=== PATIENT | female | born 1985 | race African-American/Black ===

== ENCOUNTER 2017-12-18 12:32 | Emergency (ER) | payer SELFPAY ==
[~2017-12-18] VITALS: Ht 165.1 cm; Wt 95.0 kg
[2017-12-18 12:41] VITALS: BP 117/80; PULSE 76; RESP 18; TEMP 98.6; O2SAT 100
[2017-12-18] MEDS ORDERED: SODIUM CHLOR 0.9% 1000 ML INJ 1,000 ML IV SCH (12:56)
[2017-12-18] MEDS ORDERED: MECLIZINE HCL 25 MG TAB PO ONE (13:00)
[2017-12-18] MEDS ORDERED: SODIUM CHLORIDE 0.9% FLUSH 10 ML FLUSH IV FLUSH PRN (13:00)
--- NOTE | 2017-12-18 13:02 | PD ---
HPI Chief Complaint: Abdominal Pain Time Seen by Provider: 12:47 Travel History International Travel<30 days: No Contact w/Intl Traveler<30days: No Traveled to known affect area: No History of Present Illness HPI 32-year-old female presents to the emergency department for evaluation of intermittent dizziness, palpitations, right upper quadrant abdominal pain that started 4-5 days ago. Patient states the dizziness is intermittent, worse if she bends over and stands up. Patient denies any associated nausea. She denies syncope. Patient states that she has been getting intermittent palpitations with some associated burning as well. She also reports right upper quadrant abdominal pain after she eats. She currently rates the abdominal pain 6/10, burning, without radiation. She denies . No urinary symptoms. No abnormal vaginal discharge or risk of STDs. She has no chronic medical problems and takes no prescribed medications. Moderate severity. PFSH Past Medical History ?: Not LMP: 12/12/17 Social History Alcohol Use: No Tobacco Use: No Substance Use: No Allergies-Medications (Allergen,Severity, Reaction): Coded Allergies: No Known Allergies (Unverified , 12/18/17) Reported Meds & Prescriptions Reported Meds & Active Scripts Active No Active Prescriptions or Reported Medications Review of Systems Except as stated in HPI: all other systems reviewed are Neg Physical Exam Narrative GENERAL: Well-nourished, well-developed female patient, ambulatory with a steady gait. Afebrile. SKIN: Focused skin assessment warm/dry. HEAD: Normocephalic. Atraumatic. EYES: No scleral icterus. No injection or drainage. NECK: Supple, trachea midline. No JVD or lymphadenopathy. CARDIOVASCULAR: Regular rate and rhythm without murmurs, gallops, or rubs. Bilateral radial and pedal pulses are 2+. RESPIRATORY: Breath sounds equal bilaterally. No accessory muscle use. Lung sounds are clear to auscultation. GASTROINTESTINAL: Abdomen soft and nondistended. She has tenderness over the right upper quadrant. MUSCULOSKELETAL: No cyanosis, or edema. Bilateral upper and lower extremity strength 5/5. All extremities are neurovascularly intact. BACK: Nontender without obvious deformity. No CVA tenderness. Data Data Last Documented VS Vital Signs Date Time Temp Pulse Resp B/P (MAP) Pulse Ox O2 Delivery O2 Flow Rate FiO2 12/18/17 12:41 98.6 76 18 117/80 (92) 100 Orders Orders Complete Blood Count With Diff (12/18/17 12:56) Comprehensive Metabolic Panel (12/18/17 12:56) Lipase (12/18/17 12:56) Prothrombin Time / Inr (Pt) (12/18/17 12:56) Act Partial Throm Time (Ptt) (12/18/17 12:56) Urinalysis - C+S If Indicated (12/18/17 12:56) Us Abdomen Gallbladder (12/18/17 ) Iv Access Insert/Monitor (12/18/17 12:56) Ecg Monitoring (12/18/17 12:56) Oximetry (12/18/17 12:56) Sodium Chlor 0.9% 1000 Ml Inj (Ns 1000 M (12/18/17 12:56) Sodium Chloride 0.9% Flush (Ns Flush) (12/18/17 13:00) Electrocardiogram (12/18/17 12:56) Ed Urine Pregnancytest Poc (12/18/17 12:56) Creatine Kinase (Cpk) (12/18/17 12:56) Troponin I (12/18/17 12:56) Meclizine (Antivert) (12/18/17 13:00) CKMB (12/18/17 13:05) CKMB% (12/18/17 13:05) Labs Laboratory Tests Test 12/18/17 13:05 White Blood Count 6.7 TH/MM3 Red Blood Count 5.05 MIL/MM3 Hemoglobin 12.5 GM/DL Hematocrit 39.3 % Mean Corpuscular Volume 77.8 FL Mean Corpuscular Hemoglobin 24.8 PG Mean Corpuscular Hemoglobin Concent 31.9 % Red Cell Distribution Width 15.5 % Platelet Count 400 TH/MM3 Mean Platelet Volume 8.2 FL Neutrophils (%) (Auto) 51.5 % Lymphocytes (%) (Auto) 43.4 % Monocytes (%) (Auto) 4.3 % Eosinophils (%) (Auto) 0.2 % Basophils (%) (Auto) 0.6 % Neutrophils # (Auto) 3.4 TH/MM3 Lymphocytes # (Auto) 2.9 TH/MM3 Monocytes # (Auto) 0.3 TH/MM3 Eosinophils # (Auto) 0.0 TH/MM3 Basophils # (Auto) 0.0 TH/MM3 CBC Comment DIFF FINAL Differential Comment Prothrombin Time 10.6 SEC Prothromb Time International Ratio 1.0 RATIO Activated Partial Thromboplast Time 23.6 SEC Urine Color YELLOW Urine Turbidity HAZY Urine pH 5.5 Urine Specific Reading 1.029 Urine Protein TRACE mg/dL Urine Glucose (UA) NEG mg/dL Urine Ketones TRACE mg/dL Urine Occult Blood MOD Urine Nitrite NEG Urine Bilirubin NEG Urine Urobilinogen LESS THAN 2.0 MG/DL Urine Leukocyte Esterase NEG Urine RBC 3 /hpf Urine WBC 1 /hpf Urine Squamous Epithelial Cells 10 /hpf Urine Calcium Oxalate Crystals MANY /hpf Urine Mucus FEW /lpf Microscopic Urinalysis Comment CULT NOT INDICATED Blood Urea Nitrogen 9 MG/DL Creatinine 0.96 MG/DL Random Glucose 83 MG/DL Total Protein 9.1 GM/DL Albumin 4.0 GM/DL Calcium Level 9.2 MG/DL Alkaline Phosphatase 74 U/L Aspartate Amino Transf (AST/SGOT) 25 U/L Alanine Aminotransferase (ALT/SGPT) 25 U/L Total Bilirubin 0.4 MG/DL Sodium Level 138 MEQ/L Potassium Level 3.9 MEQ/L Chloride Level 103 MEQ/L Carbon Dioxide Level 25.3 MEQ/L Anion Gap 10 MEQ/L Estimat Glomerular Filtration Rate 67 ML/MIN Total Creatine Kinase 461 U/L Creatine Kinase MB 1.9 NG/ML Creatine Kinase MB % 0.4 % Troponin I LESS THAN 0.02 NG/ML Lipase 122 U/L [facility] Medical Decision Making Medical Screen Exam Complete: Yes Emergency Medical Condition: Yes Medical Record Reviewed: Yes Interpretation(s) Last Impressions Gall Bladder Ultrasound 12/18/17 0000 Signed Impressions: Service Date/Time: Monday, December 18, 2017 14:43 - CONCLUSION: Gallbladder filled with stones. Pneumobilia of undetermined significance. Harley Beckwith MD Differential Diagnosis Electrolyte abnormality versus vertigo versus cholecystitis versus cholelithiasis versus dehydration versus anxiety versus pancreatitis Narrative Course 32-year-old female presents to the emergency department for evaluation of dizziness, right upper quadrant abdominal pain for 5-6 days. She does appear well on exam. She declines pain medication at this time. EKG shows sinus rhythm, heart rate 65, no acute ST changes. CBC, CMP, lipase, CK, troponin, PTT , PT/INR, UA, urine test ordered and pending. Patient is given normal saline 1 L IV bolus, meclizine 25 mg p.o. Ultrasound of the gallbladder is ordered and pending CBC shows no acute abnormality. CMP shows no acute abnormality. Lipase is 122. CK is 461. Troponin is less than 0.02. Coags are unremarkable. UA is negative for acute infection. Urine test is negative. US shows Gallbladder filled with stones; Pneumobilia of undetermined significance. I discussed the case with my attending physician, Dr. Mccormick, who reviewed ultrasound imaging. He recommends patient follow up with general surgeon, return for any acute, worsening of symptoms. I discussed results with the patient. She states that she is actually from [place] and will be returning there shortly. She will follow-up with a general surgeon in [place]. She does verbalize that she will come back if she has any worsening symptoms. Patient states that she will take Tylenol or ibuprofen [id number] for pain. Diagnosis Primary Impression: Gallstones Referrals: Sukhdev Orlando MD General Surgeon call for appointment Patient Instructions: Gallstones (ED), General Instructions Additional Instructions: Follow-up with general surgeon. [id number] Tylenol or ibuprofen for pain. Return to the emergency department for any worsening symptoms. Med/Other Pt SpecificInfo: No Change to Meds Scripts No Active Prescriptions or Reported Meds Disposition: 01 DISCHARGE HOME Condition: Stable Samantha Wren FAVIAN December 18, 2017 13:02
[2017-12-18 13:26] LABS: AUTOMATED NEUTROPHIL # 3.4 TH/MM3 (1.8-7.7); BASOPHIL % 0.6 % (0.0-2.0); EOSINOPHIL % 0.2 % (0.0-4.0); HEMATOCRIT 39.3 % (35.0-46.0); HEMOGLOBIN 12.5 GM/DL (11.6-15.3); LYMPH % 43.4 % (9.0-44.0); LYMPHOCYTE # 2.9 TH/MM3 (1.0-4.8); MEAN CELL VOLUME 77.8 FL (80.0-100.0); MEAN CORPUSCULAR HEMOGLOBIN 24.8 PG (27.0-34.0); MEAN CORPUSCULAR HGB CONC 31.9 % (32.0-36.0); MEAN PLATELET VOLUME 8.2 FL (7.0-11.0); MONO % 4.3 % (0.0-8.0); MONOCYTE # 0.3 TH/MM3 (0-0.9); NEUT % 51.5 % (16.0-70.0); PLATELET COUNT 400 TH/MM3 (150-450); RED BLOOD COUNT 5.05 MIL/MM3 (4.00-5.30); RED CELL DISTRIBUTION WIDTH 15.5 % (11.6-17.2); WHITE BLOOD COUNT 6.7 TH/MM3 (4.0-11.0)
[2017-12-18 13:34] LABS: BILIRUBIN, URINE NEG (NEG); BLOOD, URINE MOD (NEG); CALCIUM OXALATE CRYSTALS,URINE MANY /hpf; GLUCOSE,URINE NEG (NEG); KETONE, URINE TRACE mg/dL (NEG); MUCUS URINE FEW /lpf (OCC); NITRITE,URINE NEG (NEG); PH, URINE 5.5 (5.0-8.5); SQUAMOUS EPITHELIAL CELL URINE 10 /hpf (0-5); URINE COLOR YELLOW (YELLW/STRAW); URINE LEUKOCYTE ESTERASE NEG (NEG)
[2017-12-18 13:36] LABS: PROTHROMBIN TIME - PATIENT 10.6 SEC (9.8-11.6)
[2017-12-18 13:44] LABS: AST (GOT) 25 U/L (15-37); BICARBONATE 25.3 MEQ/L (21.0-32.0); BLOOD UREA NITROGEN 9 MG/DL (7-18); CALCIUM 9.2 MG/DL (8.5-10.1); CHLORIDE 103 MEQ/L (98-107); CREATININE 0.96 MG/DL (0.50-1.00); GLOMERULAR FILTRATION RATE 67 ML/MIN (>89); GLUCOSE,RANDOM 83 MG/DL (74-106); SODIUM (NA) 138 MEQ/L (136-145)
[2017-12-18 13:45] LABS: ALT (GPT) 25 U/L (10-53)
[2017-12-18 13:49] LABS: ALKALINE PHOSPHATASE 74 U/L (45-117); TOTAL BILIRUBIN ADULT 0.4 MG/DL (0.2-1.0); TOTAL PROTEIN 9.1 GM/DL (6.4-8.2); TROPONIN I LESS THAN 0.02 NG/ML (0.02-0.05)
--- NOTE | 2017-12-18 16:17 | RADRPT ---
EXAM DATE/TIME: 12/18/2017 14:43 [facility] COMPARISON: No previous studies available for comparison. INDICATIONS : Right upper quadrant pain after eating. MEDICAL HISTORY : Right upper quadrant pain. SURGICAL HISTORY : None. ENCOUNTER: Initial ACUITY: 4-6 days PAIN SCORE: 5/10 LOCATION: Right upper quadrant MEASUREMENTS: LIVER: 16.3 cm length COMMON DUCT: 3 mm RIGHT KIDNEY: 10.4 x 5.9 x 4.7 cm FINDINGS: LIVER: Scattered collections of biliary air. No evidence of mass or ductal dilatation. COMMON DUCT: No intraluminal mass or stone visualized. GALLBLADDER: Filled with stones. PANCREAS: The visualized portions are within normal limits. RIGHT KIDNEY: No evidence of hydronephrosis, stone, or mass. CONCLUSION: Gallbladder filled with stones. Pneumobilia of undetermined significance. Harley Beckwith MD on December 18, 2017 at 16:01 Board Certified Radiologist. This report was verified electronically.
[2017-12-18 17:04] VITALS: BP 107/73; PULSE 75; RESP 18; O2SAT 100
--- NOTE | 2017-12-19 19:06 | EKG ---
Date Performed: 12/18/2017 Time Performed: 13:03:15 PTAGE: 32 years EKG: Sinus rhythm WITH MARKED SINUS ARRHYTHMIA POSSIBLE RIGHT VENTRICULAR CONDUCTION DELAY BORDERLINE ECG NO PREVIOUS TRACING DOCTOR: Armen Esposito Interpretating Date/Time 12/19/2017 19:05:15
== END 2017-12-18 17:20 | disposition home or self-care (01) ==
LOC: NEPC 12:32
DX: K80.20 Calculus of gallbladder without cholecystitis without obstruction (principal); R42 Dizziness and giddiness; R00.2 Palpitations
CPT/HCPCS: 76705; 80053; 81001; 82550; 82552; 83690; 84484; 84703; 85025; 85610; 85730; 93005; 96360; 99285; J7030